=== PATIENT | male | born 1990 ===

== ENCOUNTER 2018-08-11 13:55 | Emergency (ER) | payer OTHER ==
[~2018-08-11] VITALS: Ht 172.7 cm; Wt 58.5 kg
[2018-08-11] MEDS ORDERED: PAXIL20 MG PO (14:08)
== END 2018-08-12 09:25 | disposition left against medical advice (07) ==
LOC: ER 13:55
DX: J45.998 Other asthma (principal); J22 Unspecified acute lower respiratory infection